=== PATIENT | male | born 1945 | race Two or more races ===

== ENCOUNTER → 2016-11-30 | Outpatient (CLI) | payer MEDICARE, BC ==
[2016-11-30 15:42] LABS: Basophils % (A) 1 %; CH 28.2; CHCM 31.4; Eosinophils # (A) 0.2 k/uL (0-0.7); Eosinophils % (A) 3 %; HCT 40.7 % (39.0-53.0); HDW 2.34; HGB 12.8 gm/dL (13.0-17.5); Luc # (Auto) 0.11; Luc % (Auto) 2; Lymphocytes # (A) 1.7 k/uL (1.0-4.8); Lymphocytes % (A) 27 %; MCH 28.4 pg (25.0-35.0); MCHC 31.6 g/dL (31.0-37.0); MCV 90.1 fL (80.0-100.0); Mean Platelet Volume 6.6; Monocytes # (A) 0.5 k/uL (0-1.0); Monocytes % (A) 8 %; Neutrophils # (A) 3.6 k/uL (1.3-7.7); Neutrophils % (A) 60 %; RBC 4.52 m/uL (4.30-5.90); RDW 13.2 % (11.5-15.5); WBC (Perox) 6.35
[2016-11-30 15:50] LABS: Prothrombin Time 10.1 sec (9.0-12.0)
--- NOTE | 2016-11-30 15:59 | XR ---
EXAMINATION TYPE: XR chest 2V DATE OF EXAM: 11/30/2016 COMPARISON: 11/07/2013 HISTORY: 71-year-old male presurgical evaluation TECHNIQUE: Frontal and lateral views FINDINGS: The cardiomediastinal silhouette, aorta, and pulmonary vasculature are within normal limits. Mild ath erosclerotic arch calcifications. Possible nodular density along the lower left heart margin. No cons olidation or pleural effusion. Some anterior bridging endplate spondylosis in the mid thoracic spine. IMPRESSION: 1. No acute cardiopulmonary process. 2. Possible superimposition shadow. Recommend nonemergent follow-up CT chest to exclude a left basila r pulmonary nodule.
[2016-11-30 16:17] LABS: Anion Gap 10 mmol/L; Blood Urea Nitrogen 18 mg/dL (9-20); Calcium 9.7 mg/dL (8.4-10.2); Carbon Dioxide 27 mmol/L (22-30); Chloride 103 mmol/L (98-107); Glucose 207 mg/dL (74-99); Non-African American GFR(MDRD) >60 (>60 ml/min/1.73 sqM); Potassium 5.2 mmol/L (3.5-5.1); Sodium 140 mmol/L (137-145)
== END | disposition home or self-care (01) ==
LOC: LABPAT 15:10
PROVIDERS: ATTEND Orthopaedic Surgery
DX: Z01.818 Encounter for other preprocedural examination (principal); M25.562 Pain in left knee; Z01.812 Encounter for preprocedural laboratory examination
CPT/HCPCS: 36415; 71020; 80048; 85025; 85610; 85730; 87070

== ENCOUNTER 2016-12-19 06:31 | Inpatient (IN) | payer MEDICARE, BC ==
[2016-12-12 10:06] VITALS: BMI 24.5
--- NOTE | 2016-12-18 10:15 | HP ---
HISTORY AND PHYSICAL CHIEF COMPLAINT: Left knee pain. HISTORY OF PRESENT ILLNESS: The patient is a 71-year-old retired gentleman who presents with progressive left knee pain secondary to osteoarthrosis despite extensive conservative measures. He has tried previous therapy, medications, and injections with only partial temporary relief. He notes the pain limits his normal function and activities. PAST MEDICAL HISTORY: Significant for diabetes, hypertension, and hyperlipidemia. CURRENT MEDICATIONS: 1. Aspirin. 2. Atorvastatin. 3. Glipizide. 4. Lisinopril. 5. Lorazepam. 6. Metformin. 7. Metoprolol. 8. Plavix. 9. Ranitidine. ALLERGIES: He denies drug allergies. FAMILY HISTORY: Significant for heart disease and cancer. SOCIAL HISTORY: Negative for current tobacco or alcohol use. SURGICAL HISTORY: Significant for cardiac stent placement in addition to cataract removal. REVIEW OF SYSTEMS: Sixteen-point review of systems otherwise reviewed and is noncontributory. PHYSICAL EXAMINATION: On examination, the patient is approximately 5 feet, 11 inches, 180 pounds of mesomorphic habitus. HEENT exam is nonfocal. Neck is supple. He has painless passive motion of his left hip. Straight leg raise is negative. Active motion left knee -10 to 125 degrees of flexion. He is tender about the medial joint line. Collaterals are stable, Jed's negative, Kareem's is equivocal. He has genu varum alignment. His distal neurovascular exam appears intact in the left lower extremity. Weightbearing notch lateral and Merchant views of left knee obtained in the office show severe medial and patellofemoral compartment narrowing. IMPRESSION: 1. Left knee severe medial compartment osteoarthrosis. 2. Type 2 diabetes. 3. History of coronary artery disease. RECOMMENDATIONS: I talked to the patient at length regarding his treatment options. At this point, he is quite symptomatic and opts to proceed with surgery. We will plan to proceed with left total knee arthroplasty. Risks and benefits were discussed at length in layman's terms. We will likely reinstitute his Plavix postoperatively. The patient underwent preoperative cardiac evaluation by Dr. Vasquez. LUIS ANGEL / ISIDRO: [id number] /
[~2016-12-19 06:31] MED LIST: ACETAMINOPHEN TAB 500 MG TAB PO ONE; HYDROmorphone 0.5 MG/0.5 ML SYRINGE IVP PRN; MELOXICAM 7.5 MG TAB PO ONE; MIDAZOLAM 2 MG/2 ML VIAL IV PRN; ONDANSETRON 4 MG/2 ML VIAL IVP ONE; SCOPOLAMINE 1.5MG/72HR PATCH TRANSDERM ONE; TRANEXAMIC ACID 1,000 MG in SODIUM CHLORIDE 0.9% 100 ML IVPB ONE; ceFAZolin 2 GM in SODIUM CHLORIDE 0.9% 100 ML IVPB ONE
[2016-12-19] MEDS: DEXAMETHASONE SOD PHOSPHATE 10 MG/ML 1 ML VIAL IV ONE ×2 (06:43→11:40)
[2016-12-19] MEDS: LACTATED RINGERS 1,000 ML IV SCH ×3 (07:00→11:40)
[2016-12-19] MEDS ORDERED: LIDOCAINE 1% 20 ML VIAL (10MG/ML) FOR IV START INTRADERMA ONE (07:00)
[2016-12-19 07:04] LABS: Glucose,Whole Blood 141 mg/dL (75-99)
[2016-12-19] MEDS ORDERED: GLYCOPYRROLATE 0.2 MG/ML 2 ML VIAL ONE (08:03)
[2016-12-19] MEDS ORDERED: TRANEXAMIC ACID 1,000 MG/10 ML VIAL ONE (08:03)
[2016-12-19] MEDS ORDERED: PROPOFOL 10 MG/ML 20 ML VIAL IV ONE (08:03)
[2016-12-19] MEDS ORDERED: SODIUM CHLORIDE 0.9% 100 ML BAG ONE (08:03)
[2016-12-19] MEDS ORDERED: ceFAZolin 3,000 MG in SODIUM CHLORIDE 0.9% IRRIGATIO 3,000 ML IRRIGATION ONE (08:03)
[2016-12-19] MEDS ORDERED: MIDAZOLAM 2 MG/2 ML VIAL ONE (08:03)
[2016-12-19] MEDS ORDERED: ePHEDrine SULFATE/0.9% NACL/PF 50 MG/5 ML SYRINGE IV ONE (08:03)
[2016-12-19] MEDS ORDERED: fentaNYL (PF) 50 MCG/ML 2 ML AMP ONE (08:03)
[2016-12-19] MEDS ORDERED: diphenhydrAMINE 50 MG/ML 1 ML VIAL ONE (08:03)
[2016-12-19] MEDS ORDERED: ROPIVACAINE 1,100 MG, SODIUM CHLORIDE 0.9% 330 ML MISCELLANE PRN ×2 (08:24)
--- NOTE | 2016-12-19 08:27 | P.ONQ ---
Anesthesiology Proc Note - PNB - Peripheral Nerve Block Performed Left Adductor Canal Indication: Acute Post-Operative Pain, Requested by physician (Dr Dobson) Sedation Type: Sedate with meaningful contact maintained Preparation: Sterile Dressing Position: Supine Catheter: Indwelling Needle Types: Other (see comment) (elida) Needle Size: 100mm (4") Needle Gauge: 20 Technique: Ultrasound Injectate: 0.5% Ropivacaine (see comment for volume) (22cc) Blood Aspirated: No Pain Paresthesia on Injection Noted: No Resistance on Injection: Normal Events: Uneventful and Well Tolerated
[2016-12-19] MEDS: ROPIVACAINE 246.25 MG, EPINEPHrine 0.5 MG, KETOROLAC 30 MG, cloNIDine HCL/PF 80 MCG, WA... MISCELLANE ONE ×10 (08:45→09:31)
[2016-12-19] MEDS ORDERED: LACTATED RINGERS 1,000 ML IV ONE (09:57)
[2016-12-19] MEDS ORDERED: NALOXONE 0.4 MG/ML 1 ML VIAL IV PRN (09:59)
[2016-12-19] MEDS ORDERED: ONDANSETRON 4 MG/2 ML VIAL IVP PRN (09:59)
[2016-12-19] MEDS ORDERED: HYDROcodone/APAP 5-325MG 1 EACH TAB PO PRN (09:59)
[2016-12-19] MEDS ORDERED: traMADol 50 MG TAB PO PRN (09:59)
[2016-12-19] MEDS ORDERED: HYDROmorphone 0.5 MG/0.5 ML SYRINGE IVP PRN ×2 (09:59)
[2016-12-19] MEDS ORDERED: MAGNESIUM HYDROXIDE 2,400 MG/10 ML CUP PO PRN (09:59)
[2016-12-19] MEDS ORDERED: ACETAMINOPHEN TAB 325 MG TAB PO PRN (09:59)
--- NOTE | 2016-12-19 10:32 | P.OP ---
Date of Procedure: 12/19/16 Preoperative Diagnosis: Left knee severe tricompartmental osteoarthrosis-primary Postoperative Diagnosis: Same Procedure(s) Performed: Left total knee eyajdvclsowj-okbxyysn-ywxumajaz stabilized Implants: Depuy Attune size 7 cemented tibial component, size 7 cemented femoral component , 9 mm articular surface, 38 mm cemented patellar component. This is a posterior stabilized implant. Anesthesia: regional, local, spinal Surgeon: Manuel Dobson Shipping Room Supervisor #1: Dominic Silva Estimated Blood Loss (ml): 50 Pathology: other (Bone fragments) Condition: stable Disposition: PACU Indications for Procedure: The patient's a 71-year-old male who presents with progressive left knee pain secondary osteoarthrosis despite extensive conservative measures. A discussion of the risks and benefits of operative intervention versus continued conservative measures was made with patient. He opted to proceed with surgery. Operative risks to include infection, neurovascular injury, development of blood clots, possible component loosening, possible component failure need for subsequent procedures was discussed. Informed consent was obtained. Operative Findings: As below Description of Procedure: The patient was brought to the operating room, and after induction of spinal anesthesia the left lower extremity was prepped and draped in normal fashion. The tourniquet was inflated to 270 mmHg. A longitudinal incision extending 3 finger breaths above the pole of patella extending to the medial aspect the tibial tubercle was then made. The skin and subcutaneous tissues were divided sharply. Electrocautery was used for hemostasis. The medial soft tissues to include the superficial and deep portions of the medial collateral ligament as well as the medial hamstring tendons were elevated subperiosteally. The posterior medial capsule was elevated to. The proximal tibial osteophytes were carefully removed. The patella was everted. A portion of the retropatellar fat pad was excised sharply. The anterior cruciate ligament was sacrificed. Blunt retractors were placed. A starting pin was placed in the distal femur 1 cm anterior to the posterior cruciate ligament origin. The orthoalign guide was placed. This was utilized to separate the distal cutting guide. Planned on 9 mm distal resection. The cutting block was pinned in place. The distal cut was then made. The posterior referencing sizing guide was utilized. A felt size 7 was most appropriate. 3 of external rotation was built into the system and verified off the posterior condyles and trans-epicondylar axis. The cutting block was pinned in place. The anterior, posterior, and chamfer cuts were then made. The bone fragments were removed. The notch guide was used to cut the notch with a reciprocating saw. The bone block was removed in one fragment. The size 7 posterior stabilized femoral component was placed and was fully seated. There is good anterior to posterior medial to lateral fit. The distal peg holes were drilled. The trial component was then removed. I then utilized the extra medullary guide for the preparation of the proximal tibia. I planned on 0 posterior slope. I planned on 2 mm resection from the medial compartment. The extra medullary guide was in line with the tibial shaft and second metatarsal distally. The cutting block was pinned in place. The proximal tibial cut was made. The bone was removed one fragment. The tibia sized most appropriately at size 7. The remnants of the medial and lateral menisci were excised at the capsular junction with electrocautery. The trial tibial and femoral components were placed along with a 9 mm articular surface. I was able to obtain full flexion and extension with good stability with varus and valgus stress. After several flexion and extension cycles, the tibial rotation was marked in line with the medial one third of the tibial tubercle. Attention was then paid towards preparing the patella. A patella reamer was utilized taking this down to 14 mm of bone stock. A good flush cut was made. The patella sized most appropriately 38 mm per the peg holes were drilled. The trial components placed. The knee was taken through range of motion. I had good patellofemoral tracking with no hands technique. The trial components were then removed. The flexion and extension gaps were checked and felt to be symmetric. The posterior osteophytes off the distal femur were carefully removed with curved osteotome. The tibia was prepared in the appropriate rotation with the appropriate drill and keel punch. Additional holes were made the proximal medial tibia to facilitate cement interdigitation. The bony surfaces were prepared with pulsatile lavage and dried. The tibial component was cemented in placed and was fully seated. Excess cement was removed. The femoral component was cemented place and was fully seated. Excess cement was removed. The trial 9 mm articular surface was placed and the knee was put in full extension. The patella component cemented in placed and was fully seated. After the cement had sufficiently hardened, the knee was again taken through range of motion. Again I was able to obtain full flexion and extension with good stability with varus and valgus stress. The trial articular surface was removed and the final 9 mm articular surface placed. This was fully seated. Care was taken to avoid any soft tissue interposition. Pulsatile lavage was utilized. The medial parapatellar arthrotomy was closed with #2 Ethibond suture. A deep drain was placed exiting laterally. The tourniquet was deflated with approximate 75 minutes total tourniquet time. The second dose of IV TXA was given. I did previously inject the posterior soft tissues with ropivacaine. The subcutaneous tissues reapproximated with interrupted 2-0 Vicryl sutures. The skin was reapproximated with 3-0 subcutaneous strata fix suture. Skin tape and adhesive was applied. A sterile dressing was applied. The patient was awoken from sedation and transferred to the recovery room in good condition. Blood loss was estimated at 50 mL. No complications were incurred. Sponge and needle counts were correct at the end the case.
--- NOTE | 2016-12-19 10:37 | XR ---
EXAMINATION TYPE: XR knee limited LT DATE OF EXAM: 12/19/2016 CLINICAL HISTORY: Left knee pain and arthritis status post total knee replacement. TECHNIQUE: Portable AP and crosstable lateral views of the left knee are obtained immediately postop eratively. COMPARISON: None FINDINGS: Metallic hardware from total left knee arthroplasty is seen and appears satisfactory in al ignment and position. There is evidence of recent surgery with percutaneous drainage catheter, diffu se subcutaneous gas, and soft tissue swelling noted. IMPRESSION: METALLIC HARDWARE FROM TOTAL LEFT KNEE ARTHROPLASTY IS SATISFACTORY IN ALIGNMENT.
[2016-12-19 13:01] LABS: Glucose,Whole Blood 202 mg/dL (75-99)
[2016-12-19 13:36] VITALS: RESP 16
[2016-12-19] MEDS ORDERED: LORazepam 0.5 MG TAB PO PRN (14:17)
[2016-12-19] MEDS: ceFAZolin 2 GM in SODIUM CHLORIDE 0.9% 100 ML IVPB SCH ×2 (15:19→23:21)
[2016-12-19] MEDS: glipiZIDE 5 MG TAB PO SCH (17:00)
[2016-12-19 17:01] LABS: Glucose,Whole Blood 252 mg/dL (75-99)
[2016-12-19] MEDS: HYDROcodone/APAP 5-325MG 1 EACH TAB PO PRN ×2 (17:57→23:25)
[2016-12-19 20:14] LABS: Glucose,Whole Blood 279 mg/dL (75-99)
[2016-12-19] MEDS ORDERED: SENNOSIDES-DOCUSATE SODIUM 1 EACH TAB PO SCH (21:00)
[2016-12-19] MEDS ORDERED: ATORVASTATIN 40 MG TAB PO SCH (21:00)
[2016-12-20 02:27] VITALS: TEMP 98.9
[2016-12-20] MEDS: HYDROcodone/APAP 5-325MG 1 EACH TAB PO PRN ×2 (05:58→11:05)
[2016-12-20] MEDS: LACTATED RINGERS 1,000 ML IV SCH ×2 (05:59)
[2016-12-20 06:57] LABS: Basophils % (A) 0 %; CH 27.5; CHCM 32.1; Eosinophils # (A) 0.1 k/uL (0-0.7); Eosinophils % (A) 1 %; HCT 32.3 % (39.0-53.0); HDW 2.28; HGB 10.5 gm/dL (13.0-17.5); Luc # (Auto) 0.11; Luc % (Auto) 1; Lymphocytes # (A) 1.3 k/uL (1.0-4.8); Lymphocytes % (A) 16 %; MCHC 32.4 g/dL (31.0-37.0); MCV 86.4 fL (80.0-100.0); Mean Platelet Volume 7.1; Monocytes # (A) 0.7 k/uL (0-1.0); Monocytes % (A) 8 %; Neutrophils # (A) 6.3 k/uL (1.3-7.7); Neutrophils % (A) 74 %; RBC 3.74 m/uL (4.30-5.90); RDW 13.9 % (11.5-15.5); WBC 8.6 k/uL (3.8-10.6); WBC (Perox) 8.77
[2016-12-20 07:03] LABS: Glucose,Whole Blood 141 mg/dL (75-99)
--- NOTE | 2016-12-20 07:16 | P.PN ---
Progress Note - Text The patient is status post[ left] adductor canal catheter placement. The catheter was placed for postoperative pain control, status post total left arthroplasty. Ropivacaine 0.2% is infusing at 8 mLs per hour. The patient has no complaints of left lower extremity numbness or weakness. Patient's VAS score is 2-10. Assessment: Patient's adductor canal catheter is in place and working appropriately. Plan: continue infusion and adjust it as needed.
[2016-12-20 07:26] LABS: ALT 27 U/L (21-72); AST 14 U/L (17-59); Alkaline Phosphatase 45 U/L (38-126); Anion Gap 9 mmol/L; Blood Urea Nitrogen 13 mg/dL (9-20); Calcium 8.7 mg/dL (8.4-10.2); Carbon Dioxide 23 mmol/L (22-30); Chloride 105 mmol/L (98-107); Glucose 132 mg/dL (74-99); Non-African American GFR(MDRD) >60 (>60 ml/min/1.73 sqM); Potassium 4.2 mmol/L (3.5-5.1); Sodium 137 mmol/L (137-145); Total Bilirubin 0.3 mg/dL (0.2-1.3); Total Protein 5.5 g/dL (6.3-8.2)
[2016-12-20] MEDS: glipiZIDE 5 MG TAB PO SCH (07:41)
[2016-12-20 07:45] VITALS: BP 120/64; PULSE 74
[2016-12-20] MEDS ORDERED: FAMOTIDINE 20 MG TAB PO SCH (09:00)
[2016-12-20] MEDS ORDERED: RIVAROXABAN 10 MG TAB PO SCH (09:00)
[2016-12-20] MEDS ORDERED: LISINOPRIL 2.5 MG TAB PO SCH (09:00)
[2016-12-20 11:08] LABS: Glucose,Whole Blood 210 mg/dL (75-99)
--- NOTE | 2016-12-20 11:31 | P.PN ---
Subjective Progress Note Date: 12/20/16 Principal diagnosis: Status post left total knee arthroplasty Patient seen today resting in his hospital bed, she appears comfortable. Patient's ambulating with therapy. Urinary cath was his pain is controlled. Denies headaches, lightheadedness, chest pain, shortness of breath, fever or chills. Objective - Vital Signs Vital signs: Vital Signs Temp 98.9 F 12/20/16 00:30 Pulse 74 12/20/16 07:44 Resp 16 12/20/16 07:44 BP 120/64 12/20/16 07:44 Pulse Ox 95 12/20/16 07:44 Intake & Output 12/19/16 12/20/16 12/20/16 18:59 06:59 18:59 Intake Total 1611 320 250 Output Total 1470 1865 450 Balance 141 -1545 -200 Weight 79.832 kg Intake: IV 1151 Intake, IV Titration 320 Amount Lactated Ringers 1,000 ml 320 @ 20 mls/hr IV .Q24H [facility] Rx#:[id number] Oral 460 250 Output: Drainage 120 290 Left Knee 120 290 Urine 1300 1575 450 Uretheral (Crandall) 1100 1575 450 Estimated Blood Loss 50 Other: Voiding Method Indwelling Catheter Indwelling Catheter Indwelling Catheter - Exam Left lower extremity: Incision is clean, dry, and intact. The prineo tape is in good condition. There is minimal soft tissue swelling and ecchymosis surrounding the medial and lateral aspects of the incision. Calf is soft, no tenderness with palpation. Plantar flexion, dorsiflexion, EHL, FHL are intact. Sensory exam to light touch throughout the extremity is intact, dorsal pedis pulses 2+. - Labs CBC & Chem 7: 12/20/16 06:23 12/20/16 06:23 Labs: Abnormal Lab Results - Last 24 Hours (Table) 12/19/16 12/19/16 12/19/16 Range/Units 12:58 16:58 20:08 RBC (4.30-5.90) m/uL Hgb (13.0-17.5) gm/dL Hct (39.0-53.0) % Glucose (74-99) mg/dL POC Glucose (mg/dL) 202 H 252 H 279 H (75-99) mg/dL AST (17-59) U/L Total Protein (6.3-8.2) g/dL Albumin (3.5-5.0) g/dL 12/20/16 12/20/16 12/20/16 Range/Units 06:23 06:23 07:00 RBC 3.74 L (4.30-5.90) m/uL Hgb 10.5 L (13.0-17.5) gm/dL Hct 32.3 L (39.0-53.0) % Glucose 132 H (74-99) mg/dL POC Glucose (mg/dL) 141 H (75-99) mg/dL AST 14 L (17-59) U/L Total Protein 5.5 L (6.3-8.2) g/dL Albumin 3.1 L (3.5-5.0) g/dL 12/20/16 Range/Units 11:00 RBC (4.30-5.90) m/uL Hgb (13.0-17.5) gm/dL Hct (39.0-53.0) % Glucose (74-99) mg/dL POC Glucose (mg/dL) 210 H (75-99) mg/dL AST (17-59) U/L Total Protein (6.3-8.2) g/dL Albumin (3.5-5.0) g/dL Assessment and Plan Plan: Assessment: 1. Postop day #1 status post left total knee arthroplasty Plan: 1. Pain control, continue supportive oral medications 2. Continue work with therapy and use of CPM 3. Daily dressing changes/ice and elevate 4. GI and DVT prophylaxis, continue Xarelto 5. Medical recommendations 6. Discharge planning: Patient may be discharged home today Time with Patient: Less than 30
[2016-12-20] MEDS ORDERED: RX INFO: IV CONTRAST WAS GIVEN 1 EACH MISC MISCELLANE PRN (11:45)
[2016-12-20] MEDS ORDERED: CYANOCOBALAMIN 500 MCG TAB PO SCH (12:00)
[2016-12-20] MEDS ORDERED: CHOLECALCIFEROL 1,000 UNIT TAB PO SCH (12:00)
--- NOTE | 2016-12-20 12:52 | P.CONS ---
History of Present Illness - Reason for Consult Consult date: 12/20/16 - Chief Complaint Osteoarthritis of the left knee - History of Present Illness This is a 71-year-old gentleman with past medical history noted below significant for severe erosive arthritis of the left knee who was admitted to the hospital for elective total left knee arthroplasty. Patient is postoperative day #1. He tolerated the procedure well. His pain is well controlled. He is scheduled for a computed tomography scan of the chest today. Apparently his primary care physician called orthopedics and informed them that he had an abnormal chest x-ray recently and needs to be evaluated further with a computed tomography scan of the chest. Patient himself denies any shortness of breath. No cough or hemoptysis. No known lung disease. Oxygen saturation is above 90% on room air. Review of Systems Review of system: 14 points review of systems were obtained and were negative except to what were mentioned in the HPI. Past Medical History Past Medical History: Coronary Artery Disease (CAD), Diabetes Mellitus, Hyperlipidemia, Prostate Disorder Additional Past Medical History / Comment(s): hx migraines post nuclear stress test, arthritis, History of Any Multi-Drug Resistant Organisms: None Reported Past Surgical History: Heart Catheterization With Stent, Tonsillectomy Additional Past Surgical History / Comment(s): greg cataracts, tlk Past Anesthesia/Blood Transfusion Reactions: No Reported Reaction Additional Past Anesthesia/Blood Transfusion Reaction / Comm: migraines and vision problems after stress test Date of Last Stent Placement:: 11/07/13 Past Psychological History: No Psychological Hx Reported Smoking Status: Never smoker Past Alcohol Use History: Daily Additional Past Alcohol Use History / Comment(s): States drinks 1 beer daily. Past Drug Use History: None Reported - Past Family History Father Family Medical History: Cancer Additional Family Medical History / Comment(s): Prostate cancer Medications and Allergies Home Medications Medication Instructions Recorded Confirmed Type Cholecalciferol [Vitamin D3] 1,000 unit PO DAILY 11/06/13 12/19/16 History Metoprolol Tartrate [Lopressor] 25 mg PO BID #180 tab 11/08/13 12/19/16 Rx LORazepam [Ativan] 0.5 mg PO DAILY PRN 05/10/15 12/19/16 History Lisinopril [Zestril] 2.5 mg PO QAM 05/10/15 12/19/16 History Nitroglycerin Sl Tabs [Nitrostat] 0.4 mg SUBLINGUAL Q5M PRN 05/10/15 12/19/16 History Aspirin [Adult Low Dose Aspirin EC] 81 mg PO DAILY 12/15/15 12/19/16 History glipiZIDE [Glucotrol XL] 5 mg PO BID 12/15/15 12/19/16 History Cyanocobalamin (Vitamin B-12) 1,000 mcg PO DAILY 12/12/16 12/19/16 History [Vitamin B-12] Multivitamins, Thera [Multivitamin 1 tab PO DAILY 12/12/16 12/19/16 History (formulary)] Ranitidine HCl 150 mg PO BID PRN 12/12/16 12/19/16 History Atorvastatin [Lipitor] 40 mg PO HS 12/19/16 12/19/16 History Rivaroxaban [Xarelto] 10 mg PO DAILY #12 tab 12/19/16 Rx metFORMIN HCL 1,000 mg PO BID 12/19/16 12/19/16 History Docusate [Colace] 100 mg PO DAILY #30 capsule 12/20/16 Rx Famotidine [Pepcid] 20 mg PO DAILY #30 tablet 12/20/16 Rx Hydrocodone/Acetaminophen [[place] 1 - 2 each PO Q6HR PRN #60 tab 12/20/16 Rx 5-325] traMADol HCl [Ultram] 50 mg PO Q6H PRN #40 tab 12/20/16 Rx Allergies Allergy/AdvReac Type Severity Reaction Status Date / Time No Known Allergies Allergy Verified 12/19/16 10:42 Physical Exam Vitals: Vital Signs Temp Pulse Resp BP Pulse Ox 12/20/16 07:44 74 16 120/64 95 12/20/16 00:30 98.9 F 64 16 106/59 94 L 12/19/16 19:53 98.3 F 73 16 136/57 97 12/19/16 13:30 55 L 124/61 12/19/16 13:15 56 L 121/59 12/19/16 13:00 53 L 115/62 Intake and Output 12/19/16 12/20/16 12/20/16 22:59 06:59 14:59 Intake Total 160 160 250 Output Total 1120 865 450 Balance -960 -705 -200 Intake: Intake, IV Titration 160 160 Amount Lactated Ringers 1,000 ml 160 160 @ 20 mls/hr IV .Q24H [facility] Rx#:[id number] Oral 250 Output: Drainage 220 190 Left Knee 220 190 Urine 900 675 450 Uretheral (Crandall) 900 675 450 Other: Voiding Method Indwelling Catheter Indwelling Catheter General: The patient is awake and alert, in no distress Eye: there is normal conjunctiva bilaterally. Neck: The neck is supple, there is no JVD. Cardiovascular: Normal S1-S2, no S3-S4, no murmurs. Respiratory: Lungs clear to auscultation bilaterally Gastrointestinal: Abdomen is soft, nontender Musculoskeletal: There is no pedal edema. Neurological:. Speech is normal. Skin: Skin is warm and dry Results CBC & Chem 7: 12/20/16 06:23 12/20/16 06:23 Labs: Abnormal Lab Results - Last 24 Hours (Table) 12/19/16 12/19/16 12/19/16 Range/Units 12:58 16:58 20:08 RBC (4.30-5.90) m/uL Hgb (13.0-17.5) gm/dL Hct (39.0-53.0) % Glucose (74-99) mg/dL POC Glucose (mg/dL) 202 H 252 H 279 H (75-99) mg/dL AST (17-59) U/L Total Protein (6.3-8.2) g/dL Albumin (3.5-5.0) g/dL 12/20/16 12/20/16 12/20/16 Range/Units 06:23 06:23 07:00 RBC 3.74 L (4.30-5.90) m/uL Hgb 10.5 L (13.0-17.5) gm/dL Hct 32.3 L (39.0-53.0) % Glucose 132 H (74-99) mg/dL POC Glucose (mg/dL) 141 H (75-99) mg/dL AST 14 L (17-59) U/L Total Protein 5.5 L (6.3-8.2) g/dL Albumin 3.1 L (3.5-5.0) g/dL 12/20/16 Range/Units 11:00 RBC (4.30-5.90) m/uL Hgb (13.0-17.5) gm/dL Hct (39.0-53.0) % Glucose (74-99) mg/dL POC Glucose (mg/dL) 210 H (75-99) mg/dL AST (17-59) U/L Total Protein (6.3-8.2) g/dL Albumin (3.5-5.0) g/dL Assessment and Plan Assessment: 1. Postoperative day #1 status post total left knee arthroplasty 2. DVT prophylaxis with Rivaroxaban and as directed by orthopedics 3. Abnormal chest x-ray done as an outpatient scheduled for computed tomography scan of the chest today for further evaluation. Patient is a symptomatic. 4. Essential hypertension: Blood pressure well-controlled 5. Physical debility, awaiting PT/OT evaluation Today, I reviewed her medication list and lab work results. Continue current regimen. Thank you very much for the consultation. I will continue to follow up on the patient closely.
--- NOTE | 2016-12-20 13:01 | CT ---
EXAMINATION TYPE: CT chest w con DATE OF EXAM: 12/20/2016 COMPARISON: Chest x-ray 11/07/2013. HISTORY: Abnormal chest x-ray CT DLP: 623 mGycm, Automated exposure control for dose reduction was used. CONTRAST: Performed injected with 100 mL of Omnipaque 300. TECHNIQUE: Axial images were obtained at 5 mm thick sections. Reconstructed images are reviewed on [employer] computer in the coronal plane. FINDINGS: Portion of the thyroid visualized is normal. Some mild streak atelectasis may be within the dependent lung bases. No enlarged mediastinal or hilar adenopathy is evident. The ascending aorta diameter at the level o f the main pulmonary artery is 3.6 cm. The main pulmonary artery diameter at the bifurcation is 2.[address] sections are obtained through the upper abdomen. Abdomen is essentially unremarkable. IMPRESSIONS: 1. Minimal subsegmental streak atelectasis dependent lung bases. 2. An acute process is not otherwise identified.
== END 2016-12-20 14:45 | disposition home health service (06) | DRG 470 ==
LOC: 2ORMAIN 06:31 → 3SUR 10:25
PROVIDERS: ADMIT Orthopaedic Surgery; ATTEND Orthopaedic Surgery
PROC: 0SRD0J9 Replacement of Left Knee Joint with Synthetic Substitute, Cemented, Open Approach (ICD-10-PCS; principal; 2016-12-19 08:00)
DX: M17.12 Unilateral primary osteoarthritis, left knee (principal); E11.9 Type 2 diabetes mellitus without complications; I10 Essential (primary) hypertension; E78.5 Hyperlipidemia, unspecified; I25.10 Atherosclerotic heart disease of native coronary artery without angina pectoris; M15.4 Erosive (osteo)arthritis; Z79.01 Long term (current) use of anticoagulants; Z79.82 Long term (current) use of aspirin; Z79.84 Long term (current) use of oral hypoglycemic drugs; Z79.899 Other long term (current) drug therapy; Z80.42 Family history of malignant neoplasm of prostate; Z95.5 Presence of coronary angioplasty implant and graft; Z85.46 Personal history of malignant neoplasm of prostate
CPT/HCPCS: 71260; 80053; 84132; 85025; 88300

== ENCOUNTER 2017-02-02 06:59 | Day surgery (SDC) | payer MEDICARE, BC ==
[2017-01-31 15:49] VITALS: BMI 23.7
[~2017-02-02 06:59] MED LIST changes: -ACETAMINOPHEN TAB 500 MG TAB PO ONE; -HYDROmorphone 0.5 MG/0.5 ML SYRINGE IVP PRN; +LACTATED RINGERS 1,000 ML IV SCH; -MELOXICAM 7.5 MG TAB PO ONE; -MIDAZOLAM 2 MG/2 ML VIAL IV PRN; -ONDANSETRON 4 MG/2 ML VIAL IVP ONE; -SCOPOLAMINE 1.5MG/72HR PATCH TRANSDERM ONE; -TRANEXAMIC ACID 1,000 MG in SODIUM CHLORIDE 0.9% 100 ML IVPB ONE; -ceFAZolin 2 GM in SODIUM CHLORIDE 0.9% 100 ML IVPB ONE
[2017-02-02 07:20] VITALS: TEMP 97.7
[2017-02-02 07:28] LABS: Glucose,Whole Blood 167 mg/dL (75-99)
[2017-02-02] MEDS ORDERED: MIDAZOLAM 2 MG/2 ML VIAL ONE (07:35)
[2017-02-02] MEDS ORDERED: fentaNYL (PF) 50 MCG/ML 2 ML AMP ONE (07:35)
[2017-02-02] MEDS ORDERED: PROPOFOL 10 MG/ML 20 ML VIAL IV ONE (07:35)
--- NOTE | 2017-02-02 07:55 | P.PCN ---
Date of Procedure: 02/02/17 Procedure(s) Performed: BRIEF HISTORY: Patient is a 71-year-old pleasant white male, scheduled for an elective colonoscopy as a part of evaluation of Hemoccult positive stools. Last colonoscopy was 10 years ago. PROCEDURE PERFORMED: Colonoscopy. PREOPERATIVE DIAGNOSIS: Hemoccult positive stool. IV sedation per Anesthesia. PROCEDURE: After informed consent was obtained, the patient, was brought into the endoscopy unit. IV sedation was administered by Anesthesia under continuous monitoring. Digital rectal examination was normal. Initially the Olympus CF- 160 flexible video colonoscope was then inserted in the rectum, gradually advanced into the cecum without any difficulty. Careful examination was performed as the scope was gradually being withdrawn. Ileocecal valve and the appendiceal orifice were visualized and appeared normal. Prep was excellent. Mucosa of the cecum, ascending colon, transverse colon, descending colon, sigmoid colon, and rectum appeared normal. Retroflexion was performed in the rectum and small internal hemorrhoids were seen. The patient tolerated the procedure well. IMPRESSION: Normal-appearing colon from rectum to cecumwith no evidence of colorectal neoplasia Small internal hemorrhoids. RECOMMENDATIONS: Findings of this examination were discussed with the patient as well as his family. He was advised to have a repeat screening colonoscopy in 10 years.
[2017-02-02 08:00] VITALS: RESP 16
[2017-02-02 08:22] VITALS: BP 122/71; PULSE 58
== END 2017-02-02 08:46 | disposition home or self-care (01) ==
LOC: ORWHC2ENDO 06:59
DX: R19.5 Other fecal abnormalities (principal); K64.8 Other hemorrhoids; I25.10 Atherosclerotic heart disease of native coronary artery without angina pectoris; I10 Essential (primary) hypertension; E78.5 Hyperlipidemia, unspecified; E11.9 Type 2 diabetes mellitus without complications; K21.9 Gastro-esophageal reflux disease without esophagitis; Z79.82 Long term (current) use of aspirin; Z79.84 Long term (current) use of oral hypoglycemic drugs; Z79.899 Other long term (current) drug therapy; Z96.659 Presence of unspecified artificial knee joint
CPT/HCPCS: 45378; J2250; J3010; J2704

== ENCOUNTER → 2021-07-28 | Outpatient (CLI) | payer MEDICARE, BC ==
--- NOTE | 2021-07-29 04:31 | MR ---
EXAMINATION TYPE: MR brain wo/w con DATE OF EXAM: 07/28/2021 COMPARISON: 04/19/2015 HISTORY: AMS, possible stroke CONTRAST: Standard multiplanar, multisequence MRI departmental protocol images were obtained without contrast a nd with 8 mL intravenous Gadavist gadolinium contrast. The diffusion images show no evidence of an acute cortical infarct. There is cerebral cortical atroph y. There is no mass effect or midline shift. No sign of intracranial hemorrhage. There is extensive i ncreased signal in the periventricular white matter with coalescent areas of measure up to 1.5 cm in thickness. Most of the lesions are 4 to 10 mm. There is mild enlargement of the ventricles. The brain stem is intact. There is no evidence of a sellar mass. No evidence of orbital mass corpus callosum ap pears intact. The contrast images show no pathologic enhancement. There is normal enhancement of the venous sinuses . IMPRESSION: Extensive white matter signal changes could relate to combined demyelinating disease and microvascula r ischemia with progression compared to old exam. No evidence of cortical infarct.
== END | disposition home or self-care (01) ==
LOC: RADMRIMAIN 10:42
PROVIDERS: ATTEND Family Medicine
DX: R41.82 Altered mental status, unspecified (principal); R90.82 White matter disease, unspecified
CPT/HCPCS: 70553; A9585

== ENCOUNTER 2022-11-27 22:15 | Emergency (ER) | payer MEDICARE, BC ==
[2022-11-27] MEDS ORDERED: SODIUM CHLORIDE 0.9% 500 ML 500 ML IV ONE (22:22)
[2022-11-27 22:29] VITALS: RESP 18; TEMP 99.1
[2022-11-27 22:32] LABS: Glucose,Whole Blood 145 mg/dL (70-110)
[2022-11-27 22:53] LABS: Basophils % (A) 0 %; Eosinophils # (A) 0.1 k/uL (0-0.7); Eosinophils % (A) 1 %; HCT 35.1 % (39.0-53.0); HGB 11.9 gm/dL (13.0-17.5); Lymphocytes # (A) 0.6 k/uL (1.0-4.8); Lymphocytes % (A) 10 %; MCV 85.3 fL (80.0-100.0); Mean Platelet Volume 7.2; Monocytes # (A) 0.7 k/uL (0-1.0); Monocytes % (A) 11 %; Neutrophils % (A) 77 %; Platelet Count 229 k/uL (150-450); RBC 4.12 m/uL (4.30-5.90); RDW 13.1 % (11.5-15.5); WBC 6.5 k/uL (3.8-10.6)
[2022-11-27 23:10] LABS: ALT 23 U/L (4-49); AST 31 U/L (17-59); African American GFR (CKD) >90 (>60 ml/min/1.73 sqM); Albumin 4.2 g/dL (3.5-5.0); Alkaline Phosphatase 63 U/L (38-126); Anion Gap 11 mmol/L; Blood Urea Nitrogen 15 mg/dL (9-20); Calcium 9.2 mg/dL (8.4-10.2); Carbon Dioxide 24 mmol/L (22-30); Chloride 98 mmol/L (98-107); Glucose 144 mg/dL (74-99); Non-African American GFR(CKD) 85 (>60 ml/min/1.73 sqM); Potassium 4.6 mmol/L (3.5-5.1); Sodium 133 mmol/L (137-145); Total Bilirubin 0.5 mg/dL (0.2-1.3); Total Protein 6.9 g/dL (6.3-8.2)
[2022-11-27 23:12] LABS: INR 0.9 (<1.2); Prothrombin Time 10.1 sec (9.0-12.0)
--- NOTE | 2022-11-28 00:10 | ED ---
General Adult HPI - General Chief complaint: Neuro Symptoms/Deficit Stated complaint: Stroke symptoms Time Seen by Provider: 11/27/22 22:21 Source: patient Mode of arrival: EMS Limitations: no limitations - History of Present Illness Initial comments: Crhistian is a pleasant 77yo M who presents to the emergency department today via ambulance for evaluation weakness and maybe an episode of slurred speech. Patient reports that he has been fighting what he considered a cold for the past couple of days, he states that last night he took some [place] plus nighttime and woke up feeling really groggy this morning. Despite feeling groggy and battling this cold patient had to travel down to [facility] to be with his in her best friend is her best friend from cancer. The afternoon they drove back to [place], they stopped at a diner and had some food and upon arriving home reports that when he got up, he was shuffling which is not typical for him. He then decided to take a shower was feeling quite fatigued and reported he had maybe 15 seconds of trouble with work finding or slurred speech. She be concerned about him and called EMS for transport. Upon arrival patient has no complaints aside from feeling fatigued. - Related Data Home Medications Medication Instructions Recorded Confirmed Cholecalciferol [Vitamin D3] 1,000 unit PO DAILY 11/06/13 02/02/17 LORazepam [Ativan] 0.5 mg PO DAILY PRN 05/10/15 02/02/17 Nitroglycerin Sl Tabs [Nitrostat] 0.4 mg SUBLINGUAL Q5M PRN 05/10/15 02/02/17 lisinopriL [Zestril] 2.5 mg PO QAM 05/10/15 02/02/17 Aspirin [Adult Low Dose Aspirin EC] 81 mg PO DAILY 12/15/15 02/02/17 glipiZIDE [Glucotrol XL] 5 mg PO BID 12/15/15 02/02/17 Cyanocobalamin (Vitamin B-12) 1,000 mcg PO DAILY 12/12/16 02/02/17 [Vitamin B-12] Multivitamins, Thera [Multivitamin 1 tab PO DAILY 12/12/16 02/02/17 (formulary)] raNITIdine HCL [Zantac] 150 mg PO BID PRN 12/12/16 02/02/17 Atorvastatin [Lipitor] 40 mg PO HS 12/19/16 02/02/17 metFORMIN HCL [Glucophage] 1,000 mg PO BID 12/19/16 02/02/17 Previous Rx's Medication Instructions Recorded Metoprolol Tartrate [Lopressor] 25 mg PO BID #180 tab 11/08/13 Allergies Allergy/AdvReac Type Severity Reaction Status Date / Time No Known Allergies Allergy Verified 11/27/22 22:24 Review of Systems ROS Statement: Those systems with pertinent positive or pertinent negative responses have been documented in the HPI. ROS Other: All systems not noted in ROS Statement are negative. Past Medical History Past Medical History: Coronary Artery Disease (CAD), Diabetes Mellitus, Hyperlipidemia, Prostate Disorder Additional Past Medical History / Comment(s): hx migraines post nuclear stress test, arthritis, History of Any Multi-Drug Resistant Organisms: None Reported Past Surgical History: Heart Catheterization With Stent, Joint Replacement, Tonsillectomy Additional Past Surgical History / Comment(s): greg cataracts, total lt knee replacement Past Anesthesia/Blood Transfusion Reactions: No Reported Reaction Additional Past Anesthesia/Blood Transfusion Reaction / Comment(s): migraines and vision problems after stress test Date of Last Stent Placement:: 11/07/13 Past Psychological History: No Psychological Hx Reported Smoking Status: Never smoker Past Alcohol Use History: Occasional Past Drug Use History: None Reported - Past Family History Father Family Medical History: Cancer Additional Family Medical History / Comment(s): Prostate cancer General Exam Limitations: no limitations General appearance: alert, in no apparent distress Head exam: Present: atraumatic, normocephalic Eye exam: Present: normal appearance, PERRL ENT exam: Present: normal exam Respiratory exam: Present: normal lung sounds bilaterally Cardiovascular Exam: Present: regular rate GI/Abdominal exam: Present: soft Rectal exam: Present: deferred Extremities exam: Present: normal inspection, full ROM. Absent: pedal edema Neurological exam: Present: alert, oriented X3, CN II-XII intact. Absent: motor sensory deficit Psychiatric exam: Present: normal affect Skin exam: Present: warm, dry Course Vital Signs 11/27/22 11/27/22 22:15 23:33 Temperature 99.1 F Pulse Rate 68 66 Respiratory 18 18 Rate Blood Pressure 146/66 154/83 O2 Sat by Pulse 99 98 Oximetry EKG Findings - EKG Comments: EKG Findings:: EKG was obtained as part of the stroke workup, EKG was obtained at 2233 rate is 62 sinus normal intervals NC 192 QRS 86 QTc 386 elevations or depressions no evidence of ischemia or infarction or arrhythmia. Medical Decision Making - Medical Decision Making Was pt. sent in by a medical professional or institution (BRIANNA Alcaraz, DEVELOPMENT DIRECTOR, urgent care, hospital, or snf...) When possible be specific @ -No Did you speak to anyone other than the patient for history (EMS, parent, family, police, friend...)? What history was obtained from this source @ -No Did you review nursing and triage notes (agree or disagree)? Why? @ -I reviewed and agree with nursing and triage notes Were old charts reviewed (outside hosp., previous admission, EMS record, old EKG, old radiological studies, urgent care reports/EKG's, snf records)? Report findings @ -No old charts were reviewed Differential Diagnosis (chest pain, altered mental status, abdominal pain women, abdominal pain men, vaginal bleeding, weakness, fever, dyspnea, syncope, headache, dizziness, GI bleed, back pain, seizure, CVA, palpatations, mental health, musculoskeletal)? @ Differential Altered Mental Status: Hypoglycemia, DKA, hypercapnia, ETOH, overdose, CO poisoning, trauma, myxedema coma, HTN encephalopathy, infection, encephalitis, psychosis, intercranial hemorrhage, hepatic encephalopathy, meningitis, CVA, this is not meant to be an all-inclusive list EKG interpreted by me (3pts min.). @ -As above X-rays interpreted by me (1pt min.). @ Chest x-ray with no evidence of pneumonia or pneumothorax CT interpreted by me (1pt min.). @ -No obvious mass or bleed, scatter artifact noted from metallic dental U/S interpreted by me (1pt. min.). @ -None done What testing was considered but not performed or refused? (CT, X-rays, U/S, labs)? Why? @ -None What meds were considered but not given or refused? Why? @ -None Did you discuss the management of the patient with other professionals (professionals i.e. BRIANNA Alcaraz, DEVELOPMENT DIRECTOR, lab, RT, psych nurse, social services director, motorcycle repair shop supervisor, teacher, chief quality officer, embedded case manager)? Give summary @ -No Was smoking cessation discussed for >3mins.? @ -No Was critical care preformed (if so, how long)? @ -No Were there social determinants of health that impacted care today? How? (Homelessness, low income, unemployed, alcoholism, drug addiction, transportation, low edu. Level, literacy, decrease access to med. care, skilled nursing, rehab)? @ -No Was there de-escalation of care discussed even if they declined (Discuss DNR or withdrawal of care, Hospice)? DNR status @ -No What co-morbidities impacted this encounter? (DM, HTN, Smoking, COPD, CAD, Cancer, CVA, ARF, Chemo, Hep., AIDS, mental health diagnosis, sleep apnea, morbid obesity)? @ -None Was patient admitted / discharged? Hospital course, mention meds given and route, prescriptions, significant lab abnormalities, going to OR and other pertinent info. @ -Discharge The patient was seen and evaluated history was obtained from patient. Patient seems to have fatigue secondary to illness, viral swabs are obtained as well as a thorough stroke workup. The patient NIH of 0 and no signs of stroke she did reportedly have some word finding problems prior to coming to the hospital. His workup here was negative aside from being positive or COVID-19. His vital signs are within normal limits he's not hypoxic tachycardic. Patient reports he's fatigued he is comfortable plan for discharge home with supportive care. Patient is fully vaccinated 4 COVID-19. Undiagnosed new problem with uncertain prognosis? @ -No Drug Therapy requiring intensive monitoring for toxicity (Heparin, Nitro, Insulin, Cardizem)? @ -No Were any procedures done? @ -No Diagnosis/symptom? @ -COVID-19 Acute, or Chronic, or Acute on Chronic? @ -default Uncomplicated (without systemic symptoms) or Complicated (systemic symptoms)? @ -default Side effects of treatment? @ -No Exacerbation, Progression, or Severe Exacerbation? @ -No Poses a threat to life or bodily function? How? (Chest pain, USA, CA, pneumonia, PE, COPD, DKA, ARF, appy, cholecystitis, CVA, Diverticulitis, Homicidal, Suicidal, threat to staff... and all critical care pts) @ -No - Lab Data Result diagrams: 11/27/22 22:27 11/27/22 22:27 Lab Results 11/27/22 11/27/22 11/27/22 Range/Units 22:27 22:27 22:27 WBC 6.5 (3.8-10.6) k/uL RBC 4.12 L (4.30-5.90) m/uL Hgb 11.9 L (13.0-17.5) gm/dL Hct 35.1 L (39.0-53.0) % MCV 85.3 (80.0-100.0) fL MCH 29.0 (25.0-35.0) pg MCHC 34.0 (31.0-37.0) g/dL RDW 13.1 (11.5-15.5) % Plt Count 229 (150-450) k/uL MPV 7.2 Neutrophils % 77 % Lymphocytes % 10 % Monocytes % 11 % Eosinophils % 1 % Basophils % 0 % Neutrophils # 5.0 (1.3-7.7) k/uL Lymphocytes # 0.6 L (1.0-4.8) k/uL Monocytes # 0.7 (0-1.0) k/uL Eosinophils # 0.1 (0-0.7) k/uL Basophils # 0.0 (0-0.2) k/uL PT 10.1 (9.0-12.0) sec INR 0.9 (<1.2) APTT 31.0 H (22.0-30.0) sec Sodium 133 L (137-145) mmol/L Potassium 4.6 (3.5-5.1) mmol/L Chloride 98 (98-107) mmol/L Carbon Dioxide 24 (22-30) mmol/L Anion Gap 11 mmol/L BUN 15 (9-20) mg/dL Creatinine 0.80 (0.66-1.25) mg/dL Est GFR (CKD-EPI)AfAm >90 (>60 ml/min/1.73 sqM) Est GFR (CKD-EPI)NonAf 85 (>60 ml/min/1.73 sqM) Glucose 144 H (74-99) mg/dL POC Glucose (mg/dL) (70-110) mg/dL POC Glu It Disaster Recovery Manager ID Calcium 9.2 (8.4-10.2) mg/dL Total Bilirubin 0.5 (0.2-1.3) mg/dL AST 31 (17-59) U/L ALT 23 (4-49) U/L Alkaline Phosphatase 63 (38-126) U/L Troponin I (0.000-0.034) ng/mL Total Protein 6.9 (6.3-8.2) g/dL Albumin 4.2 (3.5-5.0) g/dL Influenza Type A (PCR) (Not Detectd) Influenza Type B (PCR) (Not Detectd) RSV (PCR) (Not Detectd) SARS-CoV-2 (PCR) (Not Detectd) 11/27/22 11/27/22 11/27/22 Range/Units 22:27 22:27 22:30 WBC (3.8-10.6) k/uL RBC (4.30-5.90) m/uL Hgb (13.0-17.5) gm/dL Hct (39.0-53.0) % MCV (80.0-100.0) fL MCH (25.0-35.0) pg MCHC (31.0-37.0) g/dL RDW (11.5-15.5) % Plt Count (150-450) k/uL MPV Neutrophils % % Lymphocytes % % Monocytes % % Eosinophils % % Basophils % % Neutrophils # (1.3-7.7) k/uL Lymphocytes # (1.0-4.8) k/uL Monocytes # (0-1.0) k/uL Eosinophils # (0-0.7) k/uL Basophils # (0-0.2) k/uL PT (9.0-12.0) sec INR (<1.2) APTT (22.0-30.0) sec Sodium (137-145) mmol/L Potassium (3.5-5.1) mmol/L Chloride (98-107) mmol/L Carbon Dioxide (22-30) mmol/L Anion Gap mmol/L BUN (9-20) mg/dL Creatinine (0.66-1.25) mg/dL Est GFR (CKD-EPI)AfAm (>60 ml/min/1.73 sqM) Est GFR (CKD-EPI)NonAf (>60 ml/min/1.73 sqM) Glucose (74-99) mg/dL POC Glucose (mg/dL) 145 H (70-110) mg/dL POC Glu It Disaster Recovery Manager ID Michael Beltran Calcium (8.4-10.2) mg/dL Total Bilirubin (0.2-1.3) mg/dL AST (17-59) U/L ALT (4-49) U/L Alkaline Phosphatase (38-126) U/L Troponin I <0.012 (0.000-0.034) ng/mL Total Protein (6.3-8.2) g/dL Albumin (3.5-5.0) g/dL Influenza Type A (PCR) Not Detected (Not Detectd) Influenza Type B (PCR) Not Detected (Not Detectd) RSV (PCR) Not Detected (Not Detectd) SARS-CoV-2 (PCR) Detected A (Not Detectd) Disposition Clinical Impression: COVID Disposition: HOME SELF-CARE Condition: Stable Is patient prescribed a controlled substance at d/c from ED?: No Referrals: Cathy Dao MD [Primary Care Provider] - 1-2 days
--- NOTE | 2022-11-28 00:28 | XR ---
EXAM: XR Chest, 2 Views CLINICAL HISTORY: ITS.REASON XR Reason: altered mental status TECHNIQUE: Frontal and lateral views of the chest. COMPARISON: 11/30/2016 FINDINGS: Lungs: Unremarkable. No consolidation. Pleural space: Unremarkable. No pneumothorax. No pleural effusions. Heart: Unremarkable. No cardiomegaly. Mediastinum: Unremarkable. Bones/joints: No acute osseous abnormalities. IMPRESSION: No acute cardiopulmonary disease.
--- NOTE | 2022-11-28 00:59 | CT ---
EXAM: CT Head Without Intravenous Contrast CLINICAL HISTORY: ITS.REASON CT Reason: shuffling gait, transient speech TECHNIQUE: Axial computed tomography images of the head/brain without intravenous contrast. CTDI is 57.40 mGy and DLP is 1305.80 mGy-cm. This CT exam was performed using one or more of the following dose reduction techniques: automated exposure control, adjustment of the mA and/or kV according to patient size, and/or use of iterative reconstruction technique. COMPARISON: MRI brain of FINDINGS: Brain: Moderate periventricular white matter changes, likely related to microangiopathy. No hemorrhage. Ventricles: Unremarkable. No ventriculomegaly. Bones/joints: Unremarkable. No acute fracture. Soft tissues: Unremarkable. Sinuses: Unremarkable as visualized. No acute sinusitis. Mastoid air cells: Unremarkable as visualized. No mastoid effusion. IMPRESSION: Moderate periventricular white matter changes, likely related to microangiopathy.
[2022-11-28 01:35] VITALS: BP 126/74; PULSE 64
== END 2022-11-28 01:38 | disposition home or self-care (01) ==
LOC: EC 22:15
DX: U07.1 COVID-19 (principal); I25.10 Atherosclerotic heart disease of native coronary artery without angina pectoris; E78.5 Hyperlipidemia, unspecified; E11.9 Type 2 diabetes mellitus without complications; Z79.84 Long term (current) use of oral hypoglycemic drugs; Z79.82 Long term (current) use of aspirin; Z79.899 Other long term (current) drug therapy
CPT/HCPCS: 36415; 70450; 71046; 80053; 84484; 85025; 85610; 85730; 87636; 93005; 99285

== ENCOUNTER → 2023-07-27 | Day surgery (SDC) | payer MEDICARE, BC ==
[~2023-07-27] MED LIST changes: +ALPRAZolam 0.25 MG TAB PO PRN; +ALPRAZolam 0.5 MG TAB PO PRN; +ASPIRIN 325 MG TAB PO STA; +ASPIRIN 81 MG PO SCH; +ATORVASTATIN 40 MG TAB PO SCH; +ATROPINE SULFATE 0.1 MG/ML 10ML SYRINGE IV PRN; +CLOPIDOGREL 75 MG TAB ONE; +CLOPIDOGREL 75 MG TAB PO SCH; +GLIPIZIDE 5 MG PO SCH; +HEPARIN SODIUM 1,000 UN/ML (10ML VL) ONE; +ISOSORBIDE MONONITRATE ER 30 MG TAB.ER.24H PO SCH; -LACTATED RINGERS 1,000 ML IV SCH; +LIDOCAINE 1% INJ 10MG/ML (20 ML MDV) ONE; +MAG HYDROX/AL HYDROX/SIMETH 30 ML CUP PO PRN; +NITROGLYCERIN SL TABS 0.4 MG TAB SUBLINGUAL PRN; +RX INFO: IV CONTRAST WAS GIVEN 1 EACH MISC MISCELLANE PRN; +SODIUM CHLORIDE 0.9% 1,000 ML in EMPTY BAG 1 BAG IV SCH; +VERAPAMIL 2.5 MG/ML 2 ML AMP ONE; +ZOLPIDEM 5 MG TAB PO PRN; +fentaNYL (PF) 50 MCG/ML 2 ML AMP ONE
[2023-07-27] MEDS: SODIUM CHLORIDE 0.9% 1,000 ML in EMPTY BAG 1 BAG IV SCH (06:42)
[2023-07-27] MEDS: IV FLUID CONTINUATION 1,000 ML IV ONE (06:43)
[2023-07-27 06:48] LABS: Glucose,Whole Blood 168 mg/dL (70-110)
[2023-07-27 07:11] VITALS: RESP 18; TEMP 98.3
[2023-07-27] MEDS: fentaNYL (PF) 50 MCG/ML 2 ML AMP IVP ONE (07:53)
[2023-07-27] MEDS: LIDOCAINE 1% INJ 10MG/ML (20 ML MDV) SQ ONE (07:55)
[2023-07-27] MEDS: VERAPAMIL SYRINGE (5 MG/10 ML) INTRAARTER ONE (07:59)
[2023-07-27] MEDS: HEPARIN SODIUM 1,000 UN/ML (10ML VL) IVP ONE ×4 (08:01→09:09)
[2023-07-27] MEDS: CLOPIDOGREL 75 MG TAB PO ONE (08:11)
[2023-07-27] MEDS: IOPAMIDOL-370 100ML BTL INJ ONE ×3 (08:25→10:30)
[2023-07-27] MEDS: ATROPINE SULFATE 0.1 MG/ML 10ML SYRINGE IVP ONE (10:22)
[2023-07-27] MEDS: HEPARIN SOD,PORK IN 0.45% NACL 25,000 UNIT in 0.45% NACL 1 250ML.BAG IV ONE (10:38)
--- NOTE | 2023-07-27 11:07 | P.CARDCATH ---
Date of Procedure: 07/27/23 Description of Procedure: Cardiac Catheterization: The patient is a 77-year-old male with known history of hypertension, hyperlipidemia, diabetes, history of CAD status post stenting of the RCA in 2013 who presented with new onset angina, exertional as well as dyspnea on exertion. His symptoms reminds him of the way he felt prior to his PCI in 2013. Recommendations were made regarding cardiac catheterization, the risks and the complications were discussed with the patient who is in full understanding and agreement. Procedure Description: Patient was brought to slab installer in fasting semi-sedated state after receiving Fentanyl and Benadryl achieiving moderate conscious sedated state. Using Xylocaine Anesthesia and modified Seldinger technique, a 6-Urdu sheath was introduced in the right radial artery . Subsequently, selective coronary angiography was performed using a 5-Urdu 3.5 bend Ponce catheter. Multiple views of the coronary artery including hemiaxial views were obtained. The 5 Urdu pigtail catheter was used to cross the aortic valve and LVEDP was calculated. PCI: After removing the catheter a 6 Urdu 0.75 AL guiding catheter was introduced into the system and after cannulating the right coronary ostium a 0.014 BMW J- wire was positioned in the distal RCA. Subsequently a 2.5 x 12 mm trek balloon was advanced and inflation at 8 pedro pablo was done. Attempt to advance a 2.5 x 18 mm Xience marge point was unsuccessful, the stent was removed and a 6 Urdu guide liner was introduced and with the help of the guide liner the stent was advanced deployed at 16 pedro pablo after removing the stent there was an area of haziness distal to it. At that time attempt to advanced at 2.5 x 12 Xience marge point was unsuccessful. Plaque was noted in the proximal RCA. At that point and because of the poor backup the guiding catheter was removed and a 6 Urdu 1.0 AL guiding catheter was introduced. The 0.014 BMW J-wire was reintroduced across the lesion and positioned distally. A 3.0 x 15 mm Xience marge point was deployed proximally at 16 pedro pablo. Attempt to advance a 2.5 x 8 mm Xience marge point to the distal lesion were unsuccessful because of the tortuosity. And in the process of pulling the stent back through the guide liner the stent was stripped of the balloon in the mid RCA. At that point multiple attempt to rewire the distal vessel using a 0.014 whisper J-wire and a 0.014 BMW J-wire were unsuccessful. The patient has a KRYSTA-3 flow and was pain-free. The decision was made to stop at this time. Following that, catheter and sheath were removed. Hemostasis was obtained with deployment of vascular band . There was no immediate complication. Patient was returned to room in stable condition. Of note, the patient received a total of 7000 units of intravenous heparin as well as intra-arterial verapamil. History received an oral loading dose of clopidogrel and his ACT was followed. He was pain-free at the end and had no EKG changes. Findings: Left main: This is a short size vessel, bifurcating into LAD and left circumflex, left main has no obstructive disease LAD: This is a large size vessel, reaching to the apex, the calcified, giving rise to a moderately sized diagonal branch. The diagonal branch has a 60 to 70% stenosis, the LAD has a 30 to 40% plaque in the midsegment. Left circumflex: This is a nondominant large size vessel giving rise to 3 obtuse marginal branch. There is diffuse intimal disease in the second and third obtuse marginal branch but no progression compared to 2014. RCA: This is a large dominant vessel, bifurcating into PDA and PLV. The stented segment in the mid RCA is patent. In the mid distal segment there is an eccentric 95% stenosis. The vessel is very tortuous and calcified in the mid segment. Left Ventriculogram: Not performed Hemodynamics: There was no gradient across the aortic valve, LVEDP was 16-20 mmHg Conclusion: 1. Severe stenosis in the mid tortuous calcified RCA 2. Patent stent in the mid RCA 3. Moderate disease in the left circumflex with no progression of disease compared to 2014 4. Moderate disease in the diagonal 1 with no progression 5. Successful stenting of the mid distal RCA and the proximal RCA but inability to stent the distal segment of the RCA with a stripping of the stent in the mid RCA. The patient had a KRYSTA-3 flow and was pain free at the end of the procedure. Recommendations: The patient will continue on aspirin and clopidogrel, he was started on IV heparin. I discussed this case with Dr Toro at [facility] who accepted the patient to be transferred for high risk PCI. The findings and the recommendations were discussed with the patient and the family and they were in full understanding and agreement. Duration of sedation is 213 minutes.
[2023-07-27 13:20] VITALS: BP 157/74; PULSE 45
== END ==
LOC: CATHCVL 06:14
PROVIDERS: ATTEND Internal Medicine Interventional Cardiology
DX: I25.10 Atherosclerotic heart disease of native coronary artery without angina pectoris (principal); Z95.5 Presence of coronary angioplasty implant and graft; I10 Essential (primary) hypertension; E78.5 Hyperlipidemia, unspecified; E11.9 Type 2 diabetes mellitus without complications
CPT/HCPCS: 93458; C9600; C1769 ×5; C1887 ×4; C1894; C1725; C1874 ×4; J2001; J0461; J3010; J1644 ×2; Q9967

== ENCOUNTER → 2023-10-09 | Outpatient (CLI) | payer MEDICARE, BC | END | disposition home or self-care (01) | LOC: LABPRL 15:48 | PROVIDERS: ATTEND Family Medicine | DX: I67.9 Cerebrovascular disease, unspecified (principal); E87.5 Hyperkalemia; R53.83 Other fatigue; R82.998 Other abnormal findings in urine; R06.00 Dyspnea, unspecified | CPT/HCPCS: 80053; 84443; 85027 ==

== ENCOUNTER → 2023-10-12 | Outpatient (CLI) | payer MEDICARE, BC | END | disposition home or self-care (01) | LOC: LABPRL 08:26 | PROVIDERS: ATTEND Family Medicine | DX: E78.2 Mixed hyperlipidemia (principal) | CPT/HCPCS: 80053; 80061 ==

== ENCOUNTER 2024-08-14 12:03 | Emergency (ER) | payer MEDICARE, BC ==
[2024-08-14 13:10] VITALS: RESP 16
[2024-08-14] MEDS: SODIUM CHLORIDE 0.9% 500 ML 500 ML IV STA (13:11)
[2024-08-14 13:12] LABS: Basophils # (A) 0.03 10*3/uL (0.00-0.10); Basophils % (A) 0.4 %; Eosinophils # (A) 0.14 10*3/uL (0.04-0.35); Eosinophils % (A) 1.7 %; HCT 36.5 % (39.6-50.0); HGB 11.9 g/dL (13.0-17.0); Lymphocytes # (A) 1.76 10*3/uL (0.90-5.00); Lymphocytes % (A) 21.2 %; MCH 26.3 pg (27.0-32.0); MCHC 32.6 g/dL (32.0-37.0); MCV 80.8 fL (80.0-97.0); Mean Platelet Volume 9.1 fL (9.5-12.2); Monocytes # (A) 0.76 10*3/uL (0.20-1.00); Monocytes % (A) 9.1 %; Neutrophils % (A) 67.4 %; Platelet Count 320 10*3/uL (140-440); RBC 4.52 10*6/uL (4.40-5.60); RDW 14.6 % (11.5-14.5); WBC 8.31 10*3/uL (4.50-10.00)
[2024-08-14 13:16] LABS: Appearance,Urine Clear (Clear); Bilirubin,Urine Negative (Negative); Blood,Urine Negative (Negative); Color,Urine Light Yellow; Glucose,Urine (UA) 4+ (Negative); Ketones,Urine Negative (Negative); Leukocyte Esterase,Urine Trace (Negative); Mucus,Urine Rare /hpf; Nitrite,Urine Negative (Negative); PH, Urine 5.5 (5.0-8.0); Protein,Urine Negative (Negative); Specific Gravity,Urine 1.018 (1.001-1.035); Urobilinogen,Urine <2.0 mg/dL (<2.0); WBC,Urine 18 /hpf (0-5)
[2024-08-14 13:23] LABS: INR 0.9 (<1.2); Partial Thromboplastin Time 28.9 sec (22.0-30.0); Prothrombin Time 10.4 sec (10.0-12.5)
[2024-08-14 13:32] LABS: ALT 15 U/L (4-49); AST 32 U/L (17-59); African American GFR (CKD) >90 (>60 ml/min/1.73 sqM); Albumin 4.5 g/dL (3.5-5.0); Alkaline Phosphatase 66 U/L (38-126); Anion Gap 14 mmol/L; Blood Urea Nitrogen 15 mg/dL (9-20); Calcium 9.9 mg/dL (8.4-10.2); Carbon Dioxide 21 mmol/L (22-30); Chloride 101 mmol/L (98-107); Creatine Kinase 111 U/L (55-170); Glucose 145 mg/dL (74-99); Non-African American GFR(CKD) 85 (>60 ml/min/1.73 sqM); Potassium 4.8 mmol/L (3.5-5.1); Sodium 136 mmol/L (137-145); Total Bilirubin 0.4 mg/dL (0.2-1.3); Total Protein 7.6 g/dL (6.3-8.2)
--- NOTE | 2024-08-14 14:21 | ED ---
General Adult HPI - General Chief complaint: Neuro Symptoms/Deficit Stated complaint: Confusion/Abn Labs Time Seen by Provider: 08/14/24 12:10 Source: patient Mode of arrival: ambulatory Limitations: no limitations - History of Present Illness Initial comments: 78-year-old male with history of coronary artery disease, diabetes who presents to the emergency department after an episode of confusion. He reports that around 1030 this morning he was attempting to use his phone. noticed that he was having some confusion. He could not figure out how to operate it. He also had some numbness in his right hand. Patient reports the symptoms lasted approximately 30 minutes before self resolving. He has had previous episodes like this in the past and has seen Dr. Quevedo. He underwent significant testing following the episode which happened a couple years ago. He states that he has never given a diagnosis. He feels as if today's episode was similar to the past. Patient feels completely back to his baseline at this time. No headaches or visual changes. No speech disturbance. Patient is no longer confused. He denies any numbness, tingling or weakness in his extremities. No other alleviating, precipitating or modifying factors - Related Data Home Medications Medication Instructions Recorded Confirmed Nitroglycerin Sl Tabs [Nitrostat] 0.4 mg SUBLINGUAL Q5M PRN 05/10/15 08/14/24 lisinopriL [Zestril] 2.5 mg PO DAILY 05/10/15 08/14/24 Atorvastatin [Lipitor] 40 mg PO HS 12/19/16 08/14/24 metFORMIN HCL [Glucophage] 1,000 mg PO W/SUPPER 12/19/16 08/14/24 Metoprolol Tartrate [Lopressor] 12.5 mg PO BID 07/25/23 08/14/24 metFORMIN HCL 1,500 mg PO W/BRKFST 07/25/23 08/14/24 Clopidogrel [Plavix] 75 mg PO DAILY 08/14/24 08/14/24 Empagliflozin [Jardiance] 10 mg PO DAILY 08/14/24 08/14/24 Escitalopram [Lexapro] 5 mg PO DAILY 08/14/24 08/14/24 Esomeprazole Magnesium [NexIUM] 20 mg PO DAILY 08/14/24 08/14/[address] Alive! Diabetic 1 tab PO DAILY 08/14/24 08/14/24 Multivitamin Pilocarpine HCl [Pilocarpine HCl 1 drop LEFT EYE DAILY 08/14/24 08/14/24 1%] glipiZIDE [glipiZIDE ER] 10 mg PO BID-W/MEALS 08/14/24 08/14/24 Allergies Allergy/AdvReac Type Severity Reaction Status Date / Time No Known Allergies Allergy Verified 08/14/24 15:07 Review of Systems ROS Statement: Those systems with pertinent positive or pertinent negative responses have been documented in the HPI. ROS Other: All systems not noted in ROS Statement are negative. Past Medical History Past Medical History: Coronary Artery Disease (CAD), Diabetes Mellitus, Hyperlipidemia, Prostate Disorder Additional Past Medical History / Comment(s): hx migraines post nuclear stress test, arthritis, History of Any Multi-Drug Resistant Organisms: None Reported Past Surgical History: Heart Catheterization With Stent, Joint Replacement, Tonsillectomy Additional Past Surgical History / Comment(s): greg cataracts, total lt knee replacement Past Anesthesia/Blood Transfusion Reactions: No Reported Reaction Additional Past Anesthesia/Blood Transfusion Reaction / Comment(s): migraines an d vision problems after stress test Date of Last Stent Placement:: 11/07/13 Past Psychological History: No Psychological Hx Reported Smoking Status: Never smoker Past Alcohol Use History: Daily, Occasional Past Drug Use History: None Reported - Past Family History Father Family Medical History: Cancer Additional Family Medical History / Comment(s): Prostate cancer General Exam Limitations: no limitations General appearance: alert, in no apparent distress Head exam: Present: atraumatic, normocephalic, normal inspection Eye exam: Present: normal appearance, PERRL, EOMI. Absent: scleral icterus, conjunctival injection, periorbital swelling ENT exam: Present: normal exam, mucous membranes moist Neck exam: Present: normal inspection. Absent: tenderness, meningismus, lymphadenopathy Respiratory exam: Present: normal lung sounds bilaterally. Absent: respiratory distress, wheezes, rales, rhonchi, stridor Cardiovascular Exam: Present: regular rate, normal rhythm, normal heart sounds. Absent: systolic murmur, diastolic murmur, rubs, gallop, clicks GI/Abdominal exam: Present: soft, normal bowel sounds. Absent: distended, tenderness, guarding, rebound, rigid Extremities exam: Present: normal inspection, full ROM, normal capillary refill. Absent: tenderness, pedal edema, joint swelling, calf tenderness Back exam: Present: normal inspection Neurological exam: Present: alert, oriented X3, CN II-XII intact Psychiatric exam: Present: normal affect, normal mood Skin exam: Present: warm, dry, intact, normal color. Absent: rash Course Vital Signs 08/14/24 08/14/24 08/14/24 12:05 13:00 14:30 Temperature 98 F Pulse Rate 55 L 51 L 52 L Respiratory 20 16 16 Rate Blood Pressure 169/81 142/70 152/77 O2 Sat by Pulse 98 96 98 Oximetry 08/14/24 15:46 Temperature 97.7 F Pulse Rate 54 L Respiratory 16 Rate Blood Pressure 127/59 O2 Sat by Pulse 100 Oximetry Medical Decision Making - Medical Decision Making Was pt. sent in by a medical professional or institution (, PA, CERTIFIED REGISTERED NURSE ANESTHETIST, urgent care, hospital, or longterm...) When possible be specific @ -No Did you speak to anyone other than the patient for history (EMS, parent, family, police, friend...)? What history was obtained from this source @ -Spoke with the for history who states that the patient is back to his baseline Did you review nursing and triage notes (agree or disagree)? Why? @ -I reviewed and agree with nursing and triage notes Were old charts reviewed (outside hosp., previous admission, EMS record, old EKG, old radiological studies, urgent care reports/EKG's, longterm records)? Report findings @ -No old charts were reviewed Differential Diagnosis (chest pain, altered mental status, abdominal pain women, abdominal pain men, vaginal bleeding, weakness, fever, dyspnea, syncope, hea dache, dizziness, GI bleed, back pain, seizure, CVA, palpatations, mental health, musculoskeletal)? @ -Differential CVA Ischemic stroke, hemorrhagic stroke, brain tumor, atypical migraine, Wernicke's encephalopathy, seizure, multiple sclerosis, meningitis, encephalitis, hypoglycemia, Guillain-Fish, electrolytes disturbance, myasthenia gravis.... This is not meant to be an all-inclusive list EKG interpreted by me (3pts min.). @ -Yes and demonstrate send bradycardia with a rate of 52. MD interval 121. QRS 90. QTc of 392. No acute ST segment elevations. Inverted T wave aVL X-rays interpreted by me (1pt min.). @ -Yes which demonstrates no acute process CT interpreted by me (1pt min.). @ -Yes which demonstrates no acute process U/S interpreted by me (1pt. min.). @ -None done What testing was considered but not performed or refused? (CT, X-rays, U/S, labs)? Why? @ -MRI and echo however patient refused to be admitted What meds were considered but not given or refused? Why? @ -None Did you discuss the management of the patient with other professionals (professionals i.e. DrSandra, PA, CERTIFIED REGISTERED NURSE ANESTHETIST, lab, RT, psych nurse, mental health social worker, copper flotation operator, teacher, trust officer, behavioral health case manager)? Give summary @ -No Was smoking cessation discussed for >3mins.? @ -No Was critical care preformed (if so, how long)? @ -No Were there social determinants of health that impacted care today? How? (Homelessness, low income, unemployed, alcoholism, drug addiction, transportation, low edu. Level, literacy, decrease access to med. care, intermediate, rehab)? @ -No Was there de-escalation of care discussed even if they declined (Discuss DNR or withdrawal of care, Hospice)? DNR status @ -No What co-morbidities impacted this encounter? (DM, HTN, Smoking, COPD, CAD, Cancer, CVA, ARF, Chemo, Hep., AIDS, mental health diagnosis, sleep apnea, morbid obesity)? @ -Coronary artery disease Was patient admitted / discharged? Hospital course, mention meds given and route, prescriptions, significant lab abnormalities, going to OR and other pertinent info. @ -Upon arrival patient seen and evaluated in bed 18. Thorough history and physical exam was performed. Patient reporting strokelike symptoms which have fully resolved and NIH is 0 upon my evaluation. Laboratory studies are conducted. CT and CTA of the head are performed. Results are discussed with the patient. I did recommend admission as my concern is for TIA. Patient refusing admission. Risks and benefits of admission versus discharge were discu ssed. Patient is leaving understanding the risks of permanent disability and even should we not complete more of a workup. He reports that his practice billing associate took him off of his baby aspirin a month ago. Patient will resume this as he already takes Plavix. Patient is on a statin. He would like to follow-up with a neurologist other than Dr. Quevedo as he states that he was not previously satisfied with his encounter. I did give him information regarding several neurologists in the area. Patient will be discharged instructed to return for any new or worsening symptoms Undiagnosed new problem with uncertain prognosis? @ -No Drug Therapy requiring intensive monitoring for toxicity (Heparin, Nitro, Insulin, Cardizem)? @ -No Were any procedures done? @ -No Diagnosis/symptom? @ -Acute transient encephalopathy, suspected TIA Acute, or Chronic, or Acute on Chronic? @ -Acute Uncomplicated (without systemic symptoms) or Complicated (systemic symptoms)? @ -Complicated Side effects of treatment? @ -No Exacerbation, Progression, or Severe Exacerbation? @ -No Poses a threat to life or bodily function? How? (Chest pain, USA, MS, pneumonia, PE, COPD, DKA, ARF, appy, cholecystitis, CVA, Diverticulitis, Homicidal, Suicidal, threat to staff... and all critical care pts) @ -Yes as patient did present reporting strokelike symptoms - Lab Data Result diagrams: 08/14/24 13:06 08/14/24 13:06 Lab Results 08/14/24 08/14/24 08/14/24 Range/Units 13:06 13:06 13:06 WBC 8.31 (4.50-10.00) 10*3/uL RBC 4.52 (4.40-5.60) 10*6/uL Hgb 11.9 L (13.0-17.0) g/dL Hct 36.5 L (39.6-50.0) % MCV 80.8 (80.0-97.0) fL MCH 26.3 L (27.0-32.0) pg MCHC 32.6 (32.0-37.0) g/dL Plt Count 320 (140-440) 10*3/uL MPV 9.1 L (9.5-12.2) fL Immature Gran % (Auto) 0.2 % Neutrophils % 67.4 % Lymphocytes % 21.2 % Monocytes % 9.1 % Eosinophils % 1.7 % Basophils % 0.4 % Immature Gran # 0.02 (0.00-0.04) 10*3/uL Neutrophils # 5.60 (1.80-7.70) 10*3/uL Lymphocytes # 1.76 (0.90-5.00) 10*3/uL Monocytes # 0.76 (0.20-1.00) 10*3/uL Eosinophils # 0.14 (0.04-0.35) 10*3/uL Basophils # 0.03 (0.00-0.10) 10*3/uL PT 10.4 (10.0-12.5) sec INR 0.9 (<1.2) APTT 28.9 (22.0-30.0) sec Sodium 136 L (137-145) mmol/L Potassium 4.8 (3.5-5.1) mmol/L Chloride 101 (98-107) mmol/L Carbon Dioxide 21 L (22-30) mmol/L Anion Gap 14 mmol/L BUN 15 (9-20) mg/dL Creatinine 0.80 (0.66-1.25) mg/dL Est GFR (CKD-EPI)AfAm >90 (>60 ml/min/1.73 sqM) Est GFR (CKD-EPI)NonAf 85 (>60 ml/min/1.73 sqM) Glucose 145 H (74-99) mg/dL Calcium 9.9 (8.4-10.2) mg/dL Total Bilirubin 0.4 (0.2-1.3) mg/dL AST 32 (17-59) U/L ALT 15 (4-49) U/L Alkaline Phosphatase 66 (38-126) U/L Creatine Kinase 111 (55-170) U/L Troponin I (0.000-0.034) ng/mL Total Protein 7.6 (6.3-8.2) g/dL Albumin 4.5 (3.5-5.0) g/dL Urine Color Urine Appearance (Clear) Urine pH (5.0-8.0) Ur Specific Buda (1.001-1.035) Urine Protein (Negative) Urine Glucose (UA) (Negative) Urine Ketones (Negative) Urine Blood (Negative) Urine Nitrite (Negative) Urine Bilirubin (Negative) Urine Urobilinogen (<2.0) mg/dL Ur Leukocyte Esterase (Negative) Urine WBC (0-5) /hpf Urine Mucus (None) /hpf 08/14/24 08/14/24 Range/Units 13:06 13:06 WBC (4.50-10.00) 10*3/uL RBC (4.40-5.60) 10*6/uL Hgb (13.0-17.0) g/dL Hct (39.6-50.0) % MCV (80.0-97.0) fL MCH (27.0-32.0) pg MCHC (32.0-37.0) g/dL Plt Count (140-440) 10*3/uL MPV (9.5-12.2) fL Immature Gran % (Auto) % Neutrophils % % Lymphocytes % % Monocytes % % Eosinophils % % Basophils % % Immature Gran # (0.00-0.04) 10*3/uL Neutrophils # (1.80-7.70) 10*3/uL Lymphocytes # (0.90-5.00) 10*3/uL Monocytes # (0.20-1.00) 10*3/uL Eosinophils # (0.04-0.35) 10*3/uL Basophils # (0.00-0.10) 10*3/uL PT (10.0-12.5) sec INR (<1.2) APTT (22.0-30.0) sec Sodium (137-145) mmol/L Potassium (3.5-5.1) mmol/L Chloride (98-107) mmol/L Carbon Dioxide (22-30) mmol/L Anion Gap mmol/L BUN (9-20) mg/dL Creatinine (0.66-1.25) mg/dL Est GFR (CKD-EPI)AfAm (>60 ml/min/1.73 sqM) Est GFR (CKD-EPI)NonAf (>60 ml/min/1.73 sqM) Glucose (74-99) mg/dL Calcium (8.4-10.2) mg/dL Total Bilirubin (0.2-1.3) mg/dL AST (17-59) U/L ALT (4-49) U/L Alkaline Phosphatase (38-126) U/L Creatine Kinase (55-170) U/L Troponin I <0.012 (0.000-0.034) ng/mL Total Protein (6.3-8.2) g/dL Albumin (3.5-5.0) g/dL Urine Color Light Yellow Urine Appearance Clear (Clear) Urine pH 5.5 (5.0-8.0) Ur Specific Buda 1.018 (1.001-1.035) Urine Protein Negative (Negative) Urine Glucose (UA) 4+ H (Negative) Urine Ketones Negative (Negative) Urine Blood Negative (Negative) Urine Nitrite Negative (Negative) Urine Bilirubin Negative (Negative) Urine Urobilinogen <2.0 (<2.0) mg/dL Ur Leukocyte Esterase Trace H (Negative) Urine WBC 18 H (0-5) /hpf Urine Mucus Rare H (None) /hpf Disposition Clinical Impression: Acute alteration in mental status Disposition: HOME SELF-CARE Condition: Stable Instructions (If sedation given, give patient instructions): Altered Mental Status (ED) Additional Instructions: Please monitor your symptoms. Follow-up with one of the recommended neurologists. Return to the ED should any of your symptoms return. Please go back to taking a baby aspirin a day Is patient prescribed a controlled substance at d/c from ED?: No Referrals: Cathy Dao MD [Primary Care Provider] - 1-2 days Lyn Gonzalez MD [REFERRING] - 1-2 days Rasta Gonzalez MD [REFERRING] - 1-2 days Sai Montana MD [STAFF PHYSICIAN] - 1-2 days Time of Disposition: 15:28
--- NOTE | 2024-08-14 14:46 | CT ---
EXAMINATION TYPE: CT brain wo con DATE OF EXAM: 08/14/2024 COMPARISON: 11/27/2022 CLINICAL INDICATION: Male, 78 years old with history of Neuro deficit, acute, stroke suspected; PHH, Rt arm weakness, confusion CT DLP: 1204.6 mGycm Automated exposure control for dose reduction was used. Findings: The ventricles, basal cisterns and sulci over convexities are moderately enlarged consistent with mod erate generalized atrophy. There is moderate decreased density in the periventricular white matter consistent with chronic ische annette white matter demyelination. There is no mass effect or shift of midline structures. There is no acute intra or extra-axial hemorrhage. The posterior fossa including the brainstem, fourth ventricle and cerebellopontine angles appear arthur sly normal. The intraorbital contents appear normal symmetric Visualized paranasal sinuses and mastoid air cells are well aerated. Calvarium is intact. IMPRESSION: 1. No acute bleed or mass effect. 2. Senescent changes as described above. 3. No significant interval change compared to the study dated 11/27/2022 [facility], , 08/14/2024 2:44 PM
--- NOTE | 2024-08-14 15:04 | CT ---
EXAMINATION TYPE: CT angio head neck DATE OF EXAM: 08/14/2024 COMPARISON: None CLINICAL INDICATION: Male, 78 years old with history of Neuro deficit, acute, stroke suspected; PHH, Rt side weakness TECHNIQUE: CTA scan of the head and neck is performed with IV Contrast, patient injected with 65 mL of Isovue 370, axial images are obtained, coronal and sagittal reformatted images are reviewed. 3D re constructed images are created on an independent workstation and reviewed. CT DLP: 439.[address] CTDI: mGy Automated exposure control for dose reduction was used. NASCET criteria was used in interpretation of this exam? FINDINGS: The brachiocephalic origins are widely patent and no significant stenosis. There is moderate calcified plaque in the right carotid bifurcation but there is only mild stenosis. There is no stenosis of the left carotid bifurcation or proximal internal carotid artery. There is no stenosis of the vertebral arteries. Intracranially, there is no stenosis, segmental occlusion, sizable aneurysm sac or vascular malformat ion. IMPRESSION: 1. No hemodynamically significant stenosis of the common or internal carotid arteries within the neck . 2. No occlusive disease, sizable aneurysm sac or vascular malformation intracranially. NASCET criteria was used in interpretation of this exam? [facility], , 08/14/2024 3:02 PM
--- NOTE | 2024-08-14 15:31 | XR ---
EXAMINATION TYPE: XR chest 2V DATE OF EXAM: 08/14/2024 2:54 PM COMPARISON: Chest radiographs from 11/27/2022. CLINICAL INDICATION: Male, 78 years old with history of altered mental status; [facility] TECHNIQUE: XR chest 2V Frontal and lateral views of the chest. FINDINGS: Lungs/Pleura: There is no evidence of pleural effusion, focal consolidation, or pneumothorax. Pulmonary vascularity: Unremarkable. Heart/mediastinum: Cardiomediastinal silhouette is unremarkable. Atherosclerotic calcifications are seen in the aorta. Musculoskeletal: No acute osseous pathology. Other findings: None IMPRESSION: No acute cardiopulmonary disease/process. [facility], , 08/14/2024 3:29 PM
[2024-08-14 15:47] VITALS: BP 127/59; PULSE 54; TEMP 97.7
== END 2024-08-14 15:50 | disposition home or self-care (01) ==
LOC: EC 12:03
DX: R41.82 Altered mental status, unspecified (principal); I25.10 Atherosclerotic heart disease of native coronary artery without angina pectoris
CPT/HCPCS: 36415; 93005; 80053; 82550; 84484; 85025; 85610; 85730; 81001; 71046; 70496; 70450; 70498; 99285; 96360; 96361; Q9967